=== PATIENT | female | born 1995 | race African-American/Black ===

== ENCOUNTER 2016-06-27 14:13 | Emergency (ER) | payer BC, MEDICAID ==
[~2016-06-27] VITALS: Ht 167.6 cm; Wt 60.0 kg
[~2016-06-27 14:13] MED LIST: CYCL1TAB29 PO; DICL75TA PO
[2016-06-27 14:14] VITALS: BP 110/74; PULSE 94; RESP 20; TEMP 97.8; O2SAT 98
[2016-06-27 14:25] VITALS: BP 101/53; PULSE 64; RESP 16; O2SAT 98
[2016-06-27] MEDS ORDERED: SODIUM CHLOR 0.9% 1000 ML INJ 1,000 ML IV SCH (14:31)
[2016-06-27 14:44] LABS: AUTOMATED NEUTROPHIL # 3.5 TH/MM3 (1.8-7.7); BASOPHIL % 0.6 % (0.0-2.0); EOSINOPHIL # 0.5 TH/MM3 (0-0.4); HEMO FLAGS DIFF FINAL; LYMPH % 39.9 % (9.0-44.0); LYMPHOCYTE # 3.1 TH/MM3 (1.0-4.8); MEAN CORPUSCULAR HEMOGLOBIN 31.2 PG (27.0-34.0); MEAN CORPUSCULAR HGB CONC 33.5 % (32.0-36.0); MONO % 8.4 % (0.0-8.0); NEUT % 45.1 % (16.0-70.0); PLATELET COUNT 286 TH/MM3 (150-450); RED BLOOD COUNT 4.09 MIL/MM3 (4.00-5.30); WHITE BLOOD COUNT 7.8 TH/MM3 (4.0-11.0)
[2016-06-27] MEDS ORDERED: ONDANSETRON HCL 4 MG/2 ML VIAL IVP ONE (14:45)
[2016-06-27] MEDS ORDERED: KETOROLAC TROMETHAMINE 30 MG/ML (IVP) VIAL IV PUSH ONE (14:45)
--- NOTE | 2016-06-27 14:46 | PD ---
HPI Chief Complaint: GI Complaint Time Seen by Provider: 14:30 Travel History International Travel<30 days: No Contact w/Intl Traveler<30days: No Traveled to known affect area: No History of Present Illness HPI This patient was examined in the presence of a female nurse. 21-year-old female presents for evaluation of nausea, vomiting, diarrhea. Symptoms started this morning. She reports 2 episodes of vomiting and 4 episodes of diarrhea, loose and watery. Denies fevers or chills, flank pain, dysuria. She does note that she started her menstrual period today and she is having her usual pelvic cramping. She denies any unusual abdominal pain. She reports that over the course of the past week she has been attempting a strict diet in which she avoids rice and meat products. She reports that yesterday evening she ate chicken/broccoli/potatoes at a restaurant at the mall. Otherwise she denies any unusual food. No other complaints. PFSH Past Medical History Medical History: Denies Significant Hx Diminished Hearing: No Immunizations Current: Yes Tetanus Vaccination: Unknown Influenza Vaccination: Yes ?: Not LMP: CURRENTLY ON MENSES : 0 Para: 0 Miscarriage: 0 : 0 Past Surgical History Surgical History: No Previous Surgery Social History Alcohol Use: No Tobacco Use: No Substance Use: No Allergies-Medications (Allergen,Severity, Reaction): Coded Allergies: No Known Allergies (Unverified , 06/27/16) Reported Meds & Prescriptions Reported Meds & Active Scripts Active Zofran (Ondansetron HCl) 4 Mg Tab 4 Mg PO Q6HR PRN Review of Systems Except as stated in HPI: all other systems reviewed are Neg Physical Exam Narrative GENERAL: Well-developed well-nourished female in no acute distress SKIN: Warm and dry. HEAD: Atraumatic. Normocephalic. EYES: Pupils equal and round. No scleral icterus. No injection or drainage. ENT: No nasal bleeding or discharge. Mucous membranes pink and moist. NECK: Trachea midline. No JVD. CARDIOVASCULAR: Regular rate and rhythm. No murmur appreciated. RESPIRATORY: No accessory muscle use. Clear to auscultation. Breath sounds equal bilaterally. GASTROINTESTINAL: Abdomen soft, mild suprapubic tenderness to palpation without guarding. No right lower quadrant tenderness to palpation. Negative De Jesus's. MUSCULOSKELETAL: No obvious deformities no edema. NEUROLOGICAL: Awake and alert. No obvious cranial nerve deficits. Motor grossly within normal limits. Normal speech. PSYCHIATRIC: Appropriate mood and affect; insight and judgment normal. Data Data Last Documented VS Vital Signs Date Time Temp Pulse Resp B/P Pulse Ox O2 Delivery O2 Flow Rate FiO2 06/27/16 14:28 16 06/27/16 14:25 64 101/53 98 06/27/16 14:14 97.8 Orders Complete Blood Count With Diff (06/27/16 14:31) Comprehensive Metabolic Panel (06/27/16 14:31) Urinalysis - C+S If Indicated (06/27/16 14:31) Ondansetron Inj (Zofran Inj) (06/27/16 14:45) Sodium Chlor 0.9% 1000 Ml Inj (Ns 1000 M (06/27/16 14:31) Ed Urine Pregnancytest Poc (06/27/16 14:31) Ketorolac Inj (Toradol Inj) (06/27/16 14:45) Labs Laboratory Tests Test 06/27/16 06/27/16 14:35 15:50 White Blood Count 7.8 TH/MM3 Red Blood Count 4.09 MIL/MM3 Hemoglobin 12.8 GM/DL Hematocrit 38.0 % Mean Corpuscular Volume 93.0 FL Mean Corpuscular Hemoglobin 31.2 PG Mean Corpuscular Hemoglobin 33.5 % Concent Red Cell Distribution Width 13.0 % Platelet Count 286 TH/MM3 Mean Platelet Volume 7.7 FL Neutrophils (%) (Auto) 45.1 % Lymphocytes (%) (Auto) 39.9 % Monocytes (%) (Auto) 8.4 % Eosinophils (%) (Auto) 6.0 % Basophils (%) (Auto) 0.6 % Neutrophils # (Auto) 3.5 TH/MM3 Lymphocytes # (Auto) 3.1 TH/MM3 Monocytes # (Auto) 0.7 TH/MM3 Eosinophils # (Auto) 0.5 TH/MM3 Basophils # (Auto) 0.0 TH/MM3 CBC Comment DIFF FINAL Differential Comment Sodium Level 141 MEQ/L Potassium Level 3.9 MEQ/L Chloride Level 109 MEQ/L Carbon Dioxide Level 23.7 MEQ/L Anion Gap 8 MEQ/L Blood Urea Nitrogen 10 MG/DL Creatinine 0.88 MG/DL Estimat Glomerular Filtration 99 ML/MIN Rate Random Glucose 123 MG/DL Calcium Level 8.5 MG/DL Total Bilirubin 0.7 MG/DL Aspartate Amino Transf 13 U/L (AST/SGOT) Alanine Aminotransferase 18 U/L (ALT/SGPT) Alkaline Phosphatase 40 U/L Total Protein 7.0 GM/DL Albumin 3.8 GM/DL Urine Color YELLOW Urine Turbidity HAZY Urine pH 5.5 Urine Specific [place] 1.029 Urine Protein TRACE mg/dL Urine Glucose (UA) NEG mg/dL Urine Ketones 10 mg/dL Urine Occult Blood MOD Urine Nitrite NEG Urine Bilirubin NEG Urine Urobilinogen LESS THAN 2.0 MG/DL Urine Leukocyte Esterase NEG Urine RBC 163 /hpf Urine WBC 5 /hpf Urine Squamous Epithelial 1 /hpf Cells Urine Mucus FEW /lpf Microscopic Urinalysis Comment CULT NOT INDICATED MDM Medical Decision Making Medical Screen Exam Complete: Yes Emergency Medical Condition: Yes Medical Record Reviewed: Yes Interpretation(s) CBC WNL CMP random glucose 123 otherwise unremarkable Urinalysis Urine test negative Differential Diagnosis Food Poisoning, gastroenteritis, dehydration, electrolyte abnormality, colitis, diverticulitis, biliary colic Narrative Course 21-year-old female presents with nausea vomiting and diarrhea which started this morning. Physical examination is reassuring. She does have some pelvic cramping secondary to her menstrual related beginning today. No unusual pain. She does note that she ate some fast food at a mall yesterday and likely the patient has a viral gastroenteritis secondary to this. Plan is for basic lab work, she is being given Zofran and fluids and Toradol. Upon reexamination the patient is feeling improved and is requesting some water to drink. Lab work is reassuring. Urinalysis reveals hematuria likely secondary to contamination from her current menstruation. She is stable for discharge. Discussed signs and symptoms that would warrant returning to the emergency room. Diagnosis Primary Impression: Gastroenteritis Additional Instructions: Zofran as needed for nausea. Slowly advance diet as tolerated. Follow up with a primary care physician on an as-needed basis and return for any acutely new or worsening symptoms such as worsening or new abdominal pain, intractable vomiting Med/Other Pt SpecificInfo: Prescription(s) given Scripts Ondansetron (Zofran)4 Mg Tab4 Mg PO Q6HR PRN (NAUSEA OR VOMITING) #20 TAB Ref 0 Prov:Christy Michele MD 06/27/16 Disposition: 01 DISCHARGE HOME Condition: Stable Jules Tapia 5, 2017 14:46
[2016-06-27 15:13] LABS: ALKALINE PHOSPHATASE 40 U/L (45-117); TOTAL BILIRUBIN ADULT 0.7 MG/DL (0.2-1.0)
[2016-06-27 15:17] LABS: ALT (GPT) 18 U/L (9-42); ANION GAP 8 MEQ/L (5-15); AST (GOT) 13 U/L (16-38); BICARBONATE 23.7 MEQ/L (21.0-32.0); BLOOD UREA NITROGEN 10 MG/DL (7-18); CHLORIDE 109 MEQ/L (98-107); GLOMERULAR FILTRATION RATE 99 ML/MIN (>89); POTASSIUM 3.9 MEQ/L (3.5-5.1); SODIUM (NA) 141 MEQ/L (136-145)
[2016-06-27] MEDS ORDERED: ZOFR4TAB PO (15:30)
[2016-06-27 16:00] VITALS: RESP 16
[2016-06-27 16:13] LABS: BLOOD, URINE MOD (NEG); COMMENT (UR) CULT NOT INDICATED; CULTURE IF INDICATED CULT NOT INDICATED; GLUCOSE,URINE NEG (NEG); KETONE, URINE 10 mg/dL (NEG); MUCUS URINE FEW /lpf (OCC); NITRITE,URINE NEG (NEG); PH, URINE 5.5 (5.0-8.5); SQUAMOUS EPITHELIAL CELL URINE 1 /hpf (0-5); URINE COLOR YELLOW (YELLW/STRAW)
--- NOTE | 2016-06-27 16:24 | PD ---
Data Data Last Documented VS Vital Signs Date Time Temp Pulse Resp B/P Pulse Ox O2 Delivery O2 Flow Rate FiO2 06/27/16 14:28 16 06/27/16 14:25 64 101/53 98 06/27/16 14:14 97.8 Orders Complete Blood Count With Diff (06/27/16 14:31) Comprehensive Metabolic Panel (06/27/16 14:31) Urinalysis - C+S If Indicated (06/27/16 14:31) Ondansetron Inj (Zofran Inj) (06/27/16 14:45) Sodium Chlor 0.9% 1000 Ml Inj (Ns 1000 M (06/27/16 14:31) Ed Urine Pregnancytest Poc (06/27/16 14:31) Ketorolac Inj (Toradol Inj) (06/27/16 14:45) Labs Laboratory Tests Test 06/27/16 06/27/16 14:35 15:50 White Blood Count 7.8 TH/MM3 Red Blood Count 4.09 MIL/MM3 Hemoglobin 12.8 GM/DL Hematocrit 38.0 % Mean Corpuscular Volume 93.0 FL Mean Corpuscular Hemoglobin 31.2 PG Mean Corpuscular Hemoglobin 33.5 % Concent Red Cell Distribution Width 13.0 % Platelet Count 286 TH/MM3 Mean Platelet Volume 7.7 FL Neutrophils (%) (Auto) 45.1 % Lymphocytes (%) (Auto) 39.9 % Monocytes (%) (Auto) 8.4 % Eosinophils (%) (Auto) 6.0 % Basophils (%) (Auto) 0.6 % Neutrophils # (Auto) 3.5 TH/MM3 Lymphocytes # (Auto) 3.1 TH/MM3 Monocytes # (Auto) 0.7 TH/MM3 Eosinophils # (Auto) 0.5 TH/MM3 Basophils # (Auto) 0.0 TH/MM3 CBC Comment DIFF FINAL Differential Comment Sodium Level 141 MEQ/L Potassium Level 3.9 MEQ/L Chloride Level 109 MEQ/L Carbon Dioxide Level 23.7 MEQ/L Anion Gap 8 MEQ/L Blood Urea Nitrogen 10 MG/DL Creatinine 0.88 MG/DL Estimat Glomerular Filtration 99 ML/MIN Rate Random Glucose 123 MG/DL Calcium Level 8.5 MG/DL Total Bilirubin 0.7 MG/DL Aspartate Amino Transf 13 U/L (AST/SGOT) Alanine Aminotransferase 18 U/L (ALT/SGPT) Alkaline Phosphatase 40 U/L Total Protein 7.0 GM/DL Albumin 3.8 GM/DL Urine Color YELLOW Urine Turbidity HAZY Urine pH 5.5 Urine Specific [place] 1.029 Urine Protein TRACE mg/dL Urine Glucose (UA) NEG mg/dL Urine Ketones 10 mg/dL Urine Occult Blood MOD Urine Nitrite NEG Urine Bilirubin NEG Urine Urobilinogen LESS THAN 2.0 MG/DL Urine Leukocyte Esterase NEG Urine RBC 163 /hpf Urine WBC 5 /hpf Urine Squamous Epithelial 1 /hpf Cells Urine Mucus FEW /lpf Microscopic Urinalysis Comment CULT NOT INDICATED MDM Supervised Visit with DEVIN: Yes Narrative Course The history, exam, and medical decision-making in the associated midlevel provider note were completed with my assistance. I reviewed and agree with the findings presented. I attest that I had a [id number] encounter with the patient on the same day, and personally performed and documented my assessment and findings in the medical record. *My assessment and Findings: This is a 21-year-old female who presents to the emergency department having chicken yesterday when she developed vomiting and diarrhea today. She is mildly tender in the lower abdomen with no more pain in her right than on her left. She is afebrile and her labs are reassuring. I suspect this is simple gastroenteritis. I don't think any imaging is warranted. Patient will be discharged home with antiemetics. Diagnosis Primary Impression: Gastroenteritis Additional Instruction: Zofran as needed for nausea. Slowly advance diet as tolerated. Follow up with a primary care physician on an as-needed basis and return for any acutely new or worsening symptoms such as worsening or new abdominal pain, intractable vomiting Scripts Ondansetron (Zofran)4 Mg Tab4 Mg PO Q6HR PRN (NAUSEA OR VOMITING) #20 TAB Ref 0 Prov:Christy Michele MD 06/27/16 Disposition: 01 DISCHARGE HOME Condition: Stable Christy Michele MD Jun 27, 2016 16:24
== END 2016-06-27 16:41 | disposition home or self-care (01) ==
LOC: NEPA 14:13
DX: K52.9 Noninfective gastroenteritis and colitis, unspecified (principal)
CPT/HCPCS: 80053; 81001; 84703; 85025; 96361; 96374; 96375; 99284; J1885; J2405; J7030

== ENCOUNTER 2017-02-17 12:07 | Emergency (ER) | payer BC, MEDICAID ==
[~2017-02-17] VITALS: Ht 165.1 cm; Wt 70.0 kg
[~2017-02-17 12:07] MED LIST changes: -CYCL1TAB29 PO; -DICL75TA PO; +ZOFR4TAB PO
[2017-02-17 12:12] VITALS: BP 116/55; PULSE 79; RESP 12; TEMP 98.2; O2SAT 99
[2017-02-17] MEDS ORDERED: IBUP200T2 PO ×2 (12:22)
--- NOTE | 2017-02-17 12:24 | PD ---
HPI Chief Complaint: Abdominal Pain Time Seen by Provider: 12:16 Travel History International Travel<30 days: No Contact w/Intl Traveler<30days: No Traveled to known affect area: No History of Present Illness HPI Patient comes in complaining of lower abdominal pain that began today with her menstrual cycle feels similar to her previous menstrual cycle cramping pain. Pain radiates to her low back. Patient took ibuprofen with minimal to no relief of her symptoms. Patient is more concerned secondary to having multiple episodes of loose stool today. Patient denies any fevers, melena, hematochezia , chest pain, shortness of breath, loss or change in bladder, recent antibiotic use, or . Patient denies anything making this worse. PFSH Past Medical History Medical History: Denies Significant Hx Diminished Hearing: No Immunizations Current: Yes ?: Not LMP: 02/17/17 : 0 Para: 0 Miscarriage: 0 : 0 Past Surgical History Surgical History: No Previous Surgery Social History Alcohol Use: No Tobacco Use: No Substance Use: No Allergies-Medications (Allergen,Severity, Reaction): Coded Allergies: No Known Allergies (Unverified , 02/17/17) Reported Meds & Prescriptions Reported Meds & Active Scripts Active Zofran Odt (Ondansetron Odt) 4 Mg Tab 4 Mg SL Q6HR PRN Reported Ibuprofen 200 Mg Tab 200 Mg PO Q4H PRN Review of Systems Except as stated in HPI: all other systems reviewed are Neg Physical Exam Narrative GENERAL: Well-developed, well nourished, in no acute distress, and non-ill appearing. SKIN: Focused skin assessment warm and dry. HEAD: Atraumatic. Normocephalic. EYES: Pupils equal and round. EOMI. No scleral icterus. No injection or drainage. ENT: No nasal bleeding or discharge. Mucous membranes pink and moist. NECK: Trachea midline. Supple. No nuclear rigidity. CARDIOVASCULAR: Regular rate and rhythm. No murmur appreciated. RESPIRATORY: No accessory muscle use. No respiratory distress. Clear to auscultation. Breath sounds equal bilaterally. GASTROINTESTINAL: Abdomen soft, non-tender, nondistended, and no guarding. Hepatic and splenic margins not palpable. Normal bowel sounds 4. No pulsatile mass. No CVA tenderness. MUSCULOSKELETAL: No obvious deformities. No clubbing. No cyanosis. No edema. Full range of motion. NEUROLOGICAL: Awake and alert. No obvious cranial nerve deficits. Motor grossly within normal limits. Normal speech. PSYCHIATRIC: Appropriate mood and affect; insight and judgment normal. Data Data Last Documented VS Vital Signs Date Time Temp Pulse Resp B/P (MAP) Pulse Ox O2 Delivery O2 Flow Rate FiO2 02/17/17 14:36 (75) 02/17/17 13:16 Room Air 02/17/17 12:12 98.2 79 12 99 Orders Orders Complete Blood Count With Diff (02/17/17 12:22) Comprehensive Metabolic Panel (02/17/17 12:22) Lipase (02/17/17 12:22) Urinalysis - C+S If Indicated (02/17/17 12:22) Iv Access Insert/Monitor (02/17/17 12:22) Ecg Monitoring (02/17/17 12:22) Oximetry (02/17/17 12:22) Sodium Chloride 0.9% Flush (Ns Flush) (02/17/17 12:30) Ed Urine Pregnancytest Poc (02/17/17 12:22) Ondansetron Inj (Zofran Inj) (02/17/17 12:30) Sodium Chlor 0.9% 1000 Ml Inj (Ns 1000 M (02/17/17 12:30) Ed Discharge Order (02/17/17 13:55) Labs Laboratory Tests Test 02/17/17 12:35 02/17/17 12:40 Urine Color YELLOW Urine Turbidity HAZY Urine pH 6.5 Urine Specific [place] 1.035 Urine Protein 30 mg/dL Urine Glucose (UA) NEG mg/dL Urine Ketones NEG mg/dL Urine Occult Blood LARGE Urine Nitrite NEG Urine Bilirubin NEG Urine Urobilinogen LESS THAN 2.0 MG/DL Urine Leukocyte Esterase NEG Urine RBC /hpf Urine WBC 2 /hpf Urine Squamous Epithelial Cells 2 /hpf Urine Bacteria FEW /hpf Urine Mucus FEW /lpf Microscopic Urinalysis Comment CULT NOT INDICATED White Blood Count 4.0 TH/MM3 Red Blood Count 4.21 MIL/MM3 Hemoglobin 13.4 GM/DL Hematocrit 39.4 % Mean Corpuscular Volume 93.7 FL Mean Corpuscular Hemoglobin 31.7 PG Mean Corpuscular Hemoglobin Concent 33.9 % Red Cell Distribution Width 12.5 % Platelet Count 265 TH/MM3 Mean Platelet Volume 7.4 FL Neutrophils (%) (Auto) 37.7 % Lymphocytes (%) (Auto) 43.4 % Monocytes (%) (Auto) 7.6 % Eosinophils (%) (Auto) 10.4 % Basophils (%) (Auto) 0.9 % Neutrophils # (Auto) 1.5 TH/MM3 Lymphocytes # (Auto) 1.7 TH/MM3 Monocytes # (Auto) 0.3 TH/MM3 Eosinophils # (Auto) 0.4 TH/MM3 Basophils # (Auto) 0.0 TH/MM3 CBC Comment DIFF FINAL Differential Comment Blood Urea Nitrogen 13 MG/DL Creatinine 0.82 MG/DL Random Glucose 96 MG/DL Total Protein 7.3 GM/DL Albumin 3.9 GM/DL Calcium Level 8.8 MG/DL Alkaline Phosphatase 41 U/L Aspartate Amino Transf (AST/SGOT) 14 U/L Alanine Aminotransferase (ALT/SGPT) 19 U/L Total Bilirubin 0.8 MG/DL Sodium Level 140 MEQ/L Potassium Level 3.7 MEQ/L Chloride Level 109 MEQ/L Carbon Dioxide Level 24.9 MEQ/L Anion Gap 6 MEQ/L Estimat Glomerular Filtration Rate 106 ML/MIN Lipase 119 U/L MDM Medical Decision Making Medical Screen Exam Complete: Yes Emergency Medical Condition: Yes Differential Diagnosis UTI, diarrhea, menstrual cramps, electrolyte abnormality, dehydration, other Narrative Course Patient looks great, non-ill appearing. The patient was given IVF and feels much improved and is ready for discharge. The patient is tolerating fluids and is well hydrated at discharge. I suspect may be secondary to her menstrual cycle versus viral etiology by history and exam. The abdominal exam is unremarkable. There are normal active bowel sounds without any masses, distension, or significant tenderness. There is no reported blood in the stool. No clinical evidence by history, exam, or evaluation to suspect appendicitis, obstruction, PID, ovarian torsion, diverticulitis, C. difficile, or other acute surgical abdomen at this time. The patient was tolerating fluids at time of discharge. It was discussed with the patient, diagnosis, and plan of care and to follow up with the patients primary physician. The parent was also informed that they may return here for follow up if they are unable to follow up with their doctor. Abdominal warnings were discussed. The patient was instructed to return sooner if the patient worsens in anyway, especially if the abdominal pain changes, the patient experiences more pain, is not tolerating fluids, increased diarrhea, bloody stools, the patient develops persistent vomiting, has decreased activity, or dizziness with standing or as needed. The patient agreed with plan. Patient in no obvious distress upon re-evaluation. All pertinent laboratory result(s) discussed with patient. Discussed patient with Dr. Parkinson prior to discharge, who is in agreement with plan of care and disposition. Patient was asked if they wanted to speak to my attending, which the patient did not wish to do at this time. Any questions/concerns in reference to patient diagnosis/ condition discussed and clarified prior to patient's discharge. Reinforced sheer importance of close follow up with patient's primary physician or primary care clinic. Instructed patient to return to ED immediately, if symptoms return/ worsen. Patient showed understanding of above instructions. Further instructions and recommendations were detailed in discharge paperwork. Patient ambulated without difficulty out of ED at discharge. Diagnosis Primary Impression: Abdominal pain Qualified Codes: R10.30 - Lower abdominal pain, unspecified Additional Impressions: Diarrhea Qualified Codes: R19.7 - Diarrhea, unspecified Menstrual cramps Referrals: [facility] Patient Instructions: Abdominal Pain (ED), Acute Diarrhea (GEN), General Instructions, Menstruation (GEN) Additional Instructions: Follow-up with your primary care physician in 3-5 days reevaluation. Take all medication as prescribed. Use [id number] Tylenol and/or ibuprofen as needed for pain. Follow instructions packing. Use [id number] Imodium as needed for diarrhea. Follow instructions on the packaging. Drink plenty of noncaffeinated and nonalcoholic fluids Return to the emergency department if symptoms get worse. Med/Other Pt SpecificInfo: Prescription(s) given Scripts Ondansetron Odt (Zofran Odt) 4 Mg Tab 4 MG SL Q6HR Y for Nausea/Vomiting, #12 TAB 0 Refills Prov: Hong Parkinson MD 02/17/17 Disposition: 01 DISCHARGE HOME Condition: Stable Jesu Bose Feb 17, 2017 12:24
[2017-02-17] MEDS ORDERED: SODIUM CHLOR 0.9% 1000 ML INJ 1,000 ML IV ONE ×2 (12:30)
[2017-02-17] MEDS ORDERED: ONDANSETRON HCL 4 MG/2 ML VIAL IV PUSH ONE ×2 (12:30)
[2017-02-17] MEDS ORDERED: SODIUM CHLORIDE 0.9% FLUSH 10 ML FLUSH IV FLUSH PRN ×2 (12:30)
[2017-02-17 13:05] LABS: AUTOMATED NEUTROPHIL # 1.5 TH/MM3 (1.8-7.7); BASOPHIL % 0.9 % (0.0-2.0); EOSINOPHIL # 0.4 TH/MM3 (0-0.4); EOSINOPHIL % 10.4 % (0.0-4.0); HEMATOCRIT 39.4 % (35.0-46.0); HEMOGLOBIN 13.4 GM/DL (11.6-15.3); LYMPH % 43.4 % (9.0-44.0); LYMPHOCYTE # 1.7 TH/MM3 (1.0-4.8); MEAN CELL VOLUME 93.7 FL (80.0-100.0); MEAN CORPUSCULAR HEMOGLOBIN 31.7 PG (27.0-34.0); MEAN CORPUSCULAR HGB CONC 33.9 % (32.0-36.0); MEAN PLATELET VOLUME 7.4 FL (7.0-11.0); MONO % 7.6 % (0.0-8.0); MONOCYTE # 0.3 TH/MM3 (0-0.9); NEUT % 37.7 % (16.0-70.0); PLATELET COUNT 265 TH/MM3 (150-450); RED BLOOD COUNT 4.21 MIL/MM3 (4.00-5.30); RED CELL DISTRIBUTION WIDTH 12.5 % (11.6-17.2)
[2017-02-17 13:12] LABS: BACTERIA, URINE FEW /hpf; BILIRUBIN, URINE NEG (NEG); BLOOD, URINE LARGE (NEG); GLUCOSE,URINE NEG (NEG); KETONE, URINE NEG (NEG); MUCUS URINE FEW /lpf (OCC); NITRITE,URINE NEG (NEG); PH, URINE 6.5 (5.0-8.5); SQUAMOUS EPITHELIAL CELL URINE 2 /hpf (0-5); URINE COLOR YELLOW (YELLW/STRAW); URINE LEUKOCYTE ESTERASE NEG (NEG)
[2017-02-17 13:26] LABS: ALBUMIN 3.9 GM/DL (3.4-5.0); ALT (GPT) 19 U/L (10-53); AST (GOT) 14 U/L (15-37); BICARBONATE 24.9 MEQ/L (21.0-32.0); BLOOD UREA NITROGEN 13 MG/DL (7-18); CALCIUM 8.8 MG/DL (8.5-10.1); CHLORIDE 109 MEQ/L (98-107); CREATININE 0.82 MG/DL (0.50-1.00); GLOMERULAR FILTRATION RATE 106 ML/MIN (>89); GLUCOSE,RANDOM 96 MG/DL (74-106); LIPASE 119 U/L (73-393); SODIUM (NA) 140 MEQ/L (136-145)
[2017-02-17 13:29] LABS: ALKALINE PHOSPHATASE 41 U/L (45-117); TOTAL BILIRUBIN ADULT 0.8 MG/DL (0.2-1.0); TOTAL PROTEIN 7.3 GM/DL (6.4-8.2)
[2017-02-17] MEDS ORDERED: ZOFR4TAB3 SL ×2 (13:46)
== END 2017-02-17 14:37 | disposition home or self-care (01) ==
LOC: NEPE 12:07
DX: R10.30 Lower abdominal pain, unspecified (principal); R19.7 Diarrhea, unspecified; N94.6 Dysmenorrhea, unspecified
CPT/HCPCS: 80053; 81001; 83690; 84703; 85025; 96361; 96374; 99284; J2405; J7030